=== PATIENT | male | born 1955 | race African-American/Black ===

== ENCOUNTER 2021-11-20 14:47 | Inpatient (IN) | payer OTHER ==
[2021-11-20 17:02] LABS: BASO % 0.3 % (0-2.0); HEMATOCRIT 38.7 % (35.4-49); LYMPH % 17.7 % (8-40); MCH 29.4 pg (25.7-33.7); MCHC 33.6 g/dl (32.0-35.9); MEAN CELL VOLUME 87.6 fl (80-96); MEAN PLT VOLUME 8.7 fl (7.5-11.1); MONO % 7.3 % (3.8-10.2); NEUT % 73.7 % (42.8-82.8); PLATELET COUNT 249 10^3/uL (134-434); RBC 4.42 M/mm3 (4.00-5.60); RDW 14.6 % (11.9-15.9); WHITE BLOOD COUNT 8.9 K/mm3 (4.0-10.0)
[2021-11-20 17:18] LABS: CALCIUM 9.4 mg/dL (8.5-10.1)
[2021-11-20 17:19] LABS: ALBUMIN 3.5 g/dl (3.4-5.0); BLOOD UREA NITROGEN 14.2 mg/dL (7-18); MAGNESIUM 2.5 mg/dL (1.8-2.4)
[2021-11-20 17:22] LABS: CREATININE 1.5 mg/dL (0.55-1.3)
[2021-11-20 17:23] LABS: BILIRUBIN,TOTAL 0.3 mg/dL (0.2-1); TOT PROT 7.8 g/dl (6.4-8.2)
[2021-11-20 17:25] LABS: PHOSPHOROUS 2.3 mg/dL (2.5-4.9)
[2021-11-20 17:56] LABS: LACTIC ACID 3.1 mmol/L (0.4-2.0)
[2021-11-20] MEDS: SODIUM CHLORIDE 1,000 ML IV SCH (21:30)
[2021-11-20] MEDS: HEPARIN NA (PORCINE) 5,000 UNITS/ML 1ML VIAL SQ SCH (22:45)
[2021-11-21] MEDS ORDERED: HEPARIN NA (PORCINE) 5,000 UNITS/ML 1ML VIAL ONE (01:05)
[2021-11-21 03:05] VITALS: BMI 28.3
[2021-11-21] MEDS: SODIUM CHLORIDE 1,000 ML IV SCH ×3 (03:13→21:52)
[2021-11-21] MEDS: HEPARIN NA (PORCINE) 5,000 UNITS/ML 1ML VIAL SQ SCH ×4 (06:39→21:57)
[2021-11-21] MEDS ORDERED: ALBUTEROL SO4 HFA INHALER IH PRN (09:26)
[2021-11-21] MEDS ORDERED: SERTRALINE HCL 50 MG TABLET (FP) PO SCH (10:00)
[2021-11-21] MEDS ORDERED: MULTIVITAMINS (DAILY MVI) TABLET (FP) PO SCH (10:00)
[2021-11-21] MEDS ORDERED: OLANZapine 7.5 MG TABLET PO SCH (10:00)
[2021-11-21] MEDS ORDERED: DONEPEZIL HCL 10 MG TABLET (FP) PO SCH ×2 (10:30→11:40)
[2021-11-21] MEDS ORDERED: OLANZAPINE 5 MG, OLANZAPINE 2.5 MG PO SCH (12:00)
[2021-11-22] MEDS ORDERED: SODIUM CHLORIDE 1,000 ML IV SCH (00:40)
[2021-11-22] MEDS ORDERED: ALBUTEROL SO4 HFA INHALER IH PRN (00:40)
[2021-11-22] MEDS: HEPARIN NA (PORCINE) 5,000 UNITS/ML 1ML VIAL SQ SCH ×2 (06:48→13:55)
[2021-11-22] MEDS ORDERED: OLANZAPINE 5 MG, OLANZAPINE 2.5 MG PO SCH (10:00)
[2021-11-22] MEDS ORDERED: SERTRALINE HCL 50 MG TABLET (FP) PO SCH (10:00)
[2021-11-22] MEDS ORDERED: MULTIVITAMINS (DAILY MVI) TABLET (FP) PO SCH (10:00)
[2021-11-22] MEDS ORDERED: OLANZapine 5 MG TABLET ONE (10:24)
[2021-11-22] MEDS ORDERED: OLANZapine 2.5 MG TABLET ONE (10:24)
[2021-11-22 14:46] VITALS: BP 99/55; PULSE 85; TEMP 98
[2021-11-22] MEDS ORDERED: DONEPEZIL HCL 10 MG TABLET (FP) PO SCH (18:00)
== END 2021-11-22 15:51 | DRG 312 ==
LOC: JER 14:47 → JERBED 18:54 → J4W 11-21 02:27 → J5S 11-22 00:41
PROVIDERS: ADMIT Hospitalist; ATTEND Nurse Practitioner Acute Care
DX: R55 Syncope and collapse (principal); N17.9 Acute kidney failure, unspecified; G30.9 Alzheimer's disease, unspecified; F32.A Depression, unspecified; F02.80 Dementia in other diseases classified elsewhere, unspecified severity, without behavioral disturbance, psychotic disturbance, mood disturbance, and anxiety; F20.9 Schizophrenia, unspecified; W18.30XA Fall on same level, unspecified, initial encounter; Y92.098 Other place in other non-institutional residence as the place of occurrence of the external cause
CPT/HCPCS: 36415; 70450-TC; 71045-TC-FY; 80053; 80307; 82550; 82962; 83605; 83735; 84100; 84484; 85025; 85730; 93005; 93010; 93306-TC; 93880-TC; 99285-25; C9803-CS; J1644; U0003; U0005

== ENCOUNTER 2023-01-02 11:17 | Day surgery (SDC) | payer OTHER ==
[2023-01-01 13:24] VITALS: BMI 29.2
[2023-01-02 14:03] VITALS: RESP 18
[2023-01-02 14:05] VITALS: BP 90/66; PULSE 74; TEMP 97.4
== END 2023-01-02 13:55 | disposition home or self-care (01) ==
LOC: FASU-ENDO 11:17
PROVIDERS: ATTEND Internal Medicine Gastroenterology
PROC: 0DB68ZX Excision of Stomach, Via Natural or Artificial Opening Endoscopic, Diagnostic (ICD-10-PCS; 2023-01-02)
PROC: 0DB48ZX Excision of Esophagogastric Junction, Via Natural or Artificial Opening Endoscopic, Diagnostic (ICD-10-PCS; 2023-01-02)
PROC: 0DB98ZX Excision of Duodenum, Via Natural or Artificial Opening Endoscopic, Diagnostic (ICD-10-PCS; principal; 2023-01-02 12:54)
DX: D64.9 Anemia, unspecified (principal); K29.50 Unspecified chronic gastritis without bleeding; K21.00 Gastro-esophageal reflux disease with esophagitis, without bleeding; B96.81 Helicobacter pylori [H. pylori] as the cause of diseases classified elsewhere; K44.9 Diaphragmatic hernia without obstruction or gangrene
CPT/HCPCS: 88305-TC; 88341-TC; 88342-TC

== ENCOUNTER 2023-01-27 09:42 | Day surgery (SDC) | payer OTHER ==
[2023-01-26 09:48] VITALS: BMI 28.6
[2023-01-27 15:16] VITALS: TEMP 97
[2023-01-27 15:19] VITALS: BP 127/49; PULSE 63; RESP 16
== END 2023-01-27 12:30 | disposition home or self-care (01) ==
LOC: FASU-ENDO 09:42
PROVIDERS: ATTEND Internal Medicine Gastroenterology
PROC: 0DBP8ZX Excision of Rectum, Via Natural or Artificial Opening Endoscopic, Diagnostic (ICD-10-PCS; principal; 2023-01-27 11:21)
DX: D50.9 Iron deficiency anemia, unspecified (principal); K62.1 Rectal polyp; K64.1 Second degree hemorrhoids
CPT/HCPCS: 88305-TC

== ENCOUNTER 2023-03-31 08:07 | Inpatient (IN) | payer OTHER ==
[2023-03-31] MEDS ORDERED: HALOPERIDOL LACTATE 5 MG/ML IM ONE ×4 (09:38→10:43)
[2023-03-31 13:19] LABS: BASO % 0.4 % (0-2.0); HEMATOCRIT 18.5 % (35.4-49); LYMPH % 25.7 % (8-40); MCH 22.9 pg (25.7-33.7); MEAN PLT VOLUME 7.4 fl (7.5-11.1); MONO % 7.4 % (3.8-10.2); NEUT % 65.5 % (42.8-82.8); PLATELET COUNT 446 10^3/uL (134-434); RDW 18.9 % (11.9-15.9); WHITE BLOOD COUNT 9.6 K/mm3 (4.0-10.0)
[2023-03-31 13:20] LABS: HEMOGLOBIN 5.7 GM/dL (11.7-16.9)
[2023-03-31 13:26] LABS: INR 1.03 (0.83-1.09)
[2023-03-31 13:28] LABS: ACTIVATED PTT 26.6 SECONDS (25.2-36.5)
[2023-03-31] MEDS ORDERED: PANTOPRAZOLE SODIUM 40 MG VIAL IVPUSH ONE (13:53)
[2023-03-31] MEDS ORDERED: PANTOPRAZOLE SODIUM 40 MG VIAL ONE (14:17)
[2023-03-31 14:56] LABS: POTASSIUM 4.5 mmol/L (3.5-5.1)
[2023-03-31 14:58] LABS: ALBUMIN 2.8 g/dl (3.4-5.0); BLOOD UREA NITROGEN 13.9 mg/dL (7-18); CALCIUM 8.5 mg/dL (8.5-10.1)
[2023-03-31 15:01] LABS: CREATININE 1.4 mg/dL (0.55-1.3)
[2023-03-31 15:03] LABS: BILIRUBIN,TOTAL 0.2 mg/dL (0.2-1); TOT PROT 6.9 g/dl (6.4-8.2)
[2023-03-31] MEDS: DEXTROSE 5%-LACTATED RINGERS 1,000 ML IV SCH (18:29)
[2023-03-31] MEDS ORDERED: PANTOPRAZOLE SODIUM 40 MG VIAL IVPUSH SCH (22:00)
[2023-04-01] MEDS: PANTOPRAZOLE SODIUM 40 MG VIAL IVPUSH SCH ×3 (00:37→21:39)
[2023-04-01] MEDS: DEXTROSE 5%-LACTATED RINGERS 1,000 ML IV SCH ×4 (00:42→19:54)
[2023-04-01 02:58] VITALS: BMI 26.9
[2023-04-01 14:06] LABS: BASO % 0.3 % (0-2.0); EOS % 2.2 % (0-4.5); HEMATOCRIT 25.2 % (35.4-49); LYMPH % 26.4 % (8-40); MCH 25.2 pg (25.7-33.7); MCHC 31.7 g/dl (32.0-35.9); MEAN CELL VOLUME 79.7 fl (80-96); MEAN PLT VOLUME 7.2 fl (7.5-11.1); MONO % 7.2 % (3.8-10.2); NEUT % 63.9 % (42.8-82.8); PLATELET COUNT 376 10^3/uL (134-434); RBC 3.17 M/mm3 (4.00-5.60); RDW 19.6 % (11.9-15.9); WHITE BLOOD COUNT 7.2 K/mm3 (4.0-10.0)
[2023-04-01 14:14] LABS: INR 1.09 (0.83-1.09); PROTHROMBIN TIME (PATIENT) 12.6 SEC (9.7-13.0)
[2023-04-01 14:28] LABS: BLOOD UREA NITROGEN 11.1 mg/dL (7-18); CALCIUM 8.1 mg/dL (8.5-10.1)
[2023-04-01 14:29] LABS: ALBUMIN 2.5 g/dl (3.4-5.0)
[2023-04-01 14:32] LABS: CREATININE 1.4 mg/dL (0.55-1.3)
[2023-04-01 14:33] LABS: BILIRUBIN,TOTAL 0.4 mg/dL (0.2-1); TOT PROT 6.4 g/dl (6.4-8.2)
[2023-04-01] MEDS ORDERED: LORazepam 2 MG/ML SDV VIAL IVPB PRN (17:48)
[2023-04-01] MEDS: OLANZapine 2.5 MG TABLET PO SCH (21:39)
[2023-04-01] MEDS ORDERED: DONEPEZIL HCL 10 MG TABLET (FP) PO SCH (22:00)
[2023-04-02] MEDS: PANTOPRAZOLE SODIUM 40 MG VIAL IVPUSH SCH ×2 (10:15→21:03)
[2023-04-02] MEDS: DEXTROSE 5%-LACTATED RINGERS 1,000 ML IV SCH (10:20)
[2023-04-02 10:43] LABS: BASO % 0.5 % (0-2.0); EOS % 2.3 % (0-4.5); HEMOGLOBIN 7.3 GM/dL (11.7-16.9); LYMPH % 26.8 % (8-40); MCH 25.4 pg (25.7-33.7); MCHC 31.6 g/dl (32.0-35.9); MEAN CELL VOLUME 80.3 fl (80-96); MEAN PLT VOLUME 7.4 fl (7.5-11.1); MONO % 8.5 % (3.8-10.2); NEUT % 61.9 % (42.8-82.8); PLATELET COUNT 329 10^3/uL (134-434); RBC 2.86 M/mm3 (4.00-5.60); RDW 19.8 % (11.9-15.9); WHITE BLOOD COUNT 7.7 K/mm3 (4.0-10.0)
[2023-04-02 11:42] LABS: ALBUMIN 2.3 g/dl (3.4-5.0); BLOOD UREA NITROGEN 8.9 mg/dL (7-18); MAGNESIUM 2.5 mg/dL (1.8-2.4)
[2023-04-02 11:45] LABS: CREATININE 1.3 mg/dL (0.55-1.3)
[2023-04-02 11:48] LABS: BILIRUBIN,TOTAL 0.4 mg/dL (0.2-1); TOT PROT 5.8 g/dl (6.4-8.2)
[2023-04-02] MEDS: SERTRALINE HCL 50 MG TABLET (FP) PO SCH (21:02)
[2023-04-02] MEDS: OLANZapine 2.5 MG TABLET PO SCH (21:02)
[2023-04-03] MEDS: DEXTROSE 5%-LACTATED RINGERS 1,000 ML IV SCH ×2 (01:38→13:48)
[2023-04-03 12:44] LABS: BASO % 0.3 % (0-2.0); EOS % 1.7 % (0-4.5); HEMATOCRIT 26.2 % (35.4-49); HEMOGLOBIN 8.7 GM/dL (11.7-16.9); LYMPH % 22.6 % (8-40); MCH 26.2 pg (25.7-33.7); MEAN CELL VOLUME 79.4 fl (80-96); MEAN PLT VOLUME 7.3 fl (7.5-11.1); MONO % 7.6 % (3.8-10.2); NEUT % 67.8 % (42.8-82.8); PLATELET COUNT 320 10^3/uL (134-434); RDW 20.2 % (11.9-15.9); WHITE BLOOD COUNT 7.1 K/mm3 (4.0-10.0)
[2023-04-03 12:48] LABS: INR 1.09 (0.83-1.09); PROTHROMBIN TIME (PATIENT) 12.6 SEC (9.7-13.0)
[2023-04-03 13:09] LABS: POTASSIUM 4.1 mmol/L (3.5-5.1)
[2023-04-03 13:14] LABS: CALCIUM 7.8 mg/dL (8.5-10.1)
[2023-04-03 13:15] LABS: ALBUMIN 2.4 g/dl (3.4-5.0); MAGNESIUM 2.1 mg/dL (1.8-2.4)
[2023-04-03 13:19] LABS: BILIRUBIN,TOTAL 0.5 mg/dL (0.2-1); CREATININE 1.2 mg/dL (0.55-1.3)
[2023-04-03] MEDS: PANTOPRAZOLE SODIUM 40 MG VIAL IVPUSH SCH (13:47)
[2023-04-03] MEDS: OLANZapine 2.5 MG TABLET PO SCH (21:01)
[2023-04-03] MEDS: PANTOPRAZOLE 40 MG TABLET PO SCH (21:01)
[2023-04-03] MEDS: SERTRALINE HCL 50 MG TABLET (FP) PO SCH (21:03)
[2023-04-04 09:58] LABS: BASO % 0.5 % (0-2.0); EOS % 2.6 % (0-4.5); HEMATOCRIT 26.6 % (35.4-49); HEMOGLOBIN 8.9 GM/dL (11.7-16.9); LYMPH % 27.5 % (8-40); MCH 26.2 pg (25.7-33.7); MCHC 33.5 g/dl (32.0-35.9); MEAN CELL VOLUME 78.3 fl (80-96); MEAN PLT VOLUME 7.4 fl (7.5-11.1); MONO % 11.2 % (3.8-10.2); NEUT % 58.2 % (42.8-82.8); PLATELET COUNT 299 10^3/uL (134-434); RDW 20.6 % (11.9-15.9); WHITE BLOOD COUNT 7.2 K/mm3 (4.0-10.0)
[2023-04-04 10:19] LABS: POTASSIUM 4.1 mmol/L (3.5-5.1)
[2023-04-04 10:23] LABS: CALCIUM 8.3 mg/dL (8.5-10.1)
[2023-04-04 10:24] LABS: ALBUMIN 2.5 g/dl (3.4-5.0); BLOOD UREA NITROGEN 8.7 mg/dL (7-18); MAGNESIUM 2.4 mg/dL (1.8-2.4)
[2023-04-04 10:27] LABS: CREATININE 1.4 mg/dL (0.55-1.3)
[2023-04-04 10:29] LABS: BILIRUBIN,TOTAL 0.4 mg/dL (0.2-1); TOT PROT 6.1 g/dl (6.4-8.2)
[2023-04-04] MEDS: PANTOPRAZOLE 40 MG TABLET PO SCH ×2 (10:51→21:37)
[2023-04-04] MEDS: DEXTROSE 5%-LACTATED RINGERS 1,000 ML IV SCH ×3 (10:53→21:38)
[2023-04-04 12:25] LABS: ANISOCYTOSIS 2+
[2023-04-04] MEDS: SERTRALINE HCL 50 MG TABLET (FP) PO SCH (21:37)
[2023-04-04] MEDS: OLANZapine 2.5 MG TABLET PO SCH (21:37)
[2023-04-05] MEDS: PANTOPRAZOLE 40 MG TABLET PO SCH ×2 (10:11→21:26)
[2023-04-05 10:16] LABS: BASO % 0.7 % (0-2.0); HEMATOCRIT 28.2 % (35.4-49); LYMPH % 32.7 % (8-40); MCH 26.1 pg (25.7-33.7); MCHC 31.8 g/dl (32.0-35.9); MEAN CELL VOLUME 82.1 fl (80-96); MEAN PLT VOLUME 7.7 fl (7.5-11.1); MONO % 10.6 % (3.8-10.2); PLATELET COUNT 301 10^3/uL (134-434); RBC 3.43 M/mm3 (4.00-5.60); RDW 20.3 % (11.9-15.9); WHITE BLOOD COUNT 7.2 K/mm3 (4.0-10.0)
[2023-04-05 10:38] LABS: POTASSIUM 4.6 mmol/L (3.5-5.1)
[2023-04-05 10:44] LABS: ALBUMIN 2.6 g/dl (3.4-5.0); CALCIUM 8.5 mg/dL (8.5-10.1); MAGNESIUM 2.3 mg/dL (1.8-2.4)
[2023-04-05 10:47] LABS: CREATININE 1.4 mg/dL (0.55-1.3)
[2023-04-05 10:49] LABS: BILIRUBIN,TOTAL 0.4 mg/dL (0.2-1); TOT PROT 6.4 g/dl (6.4-8.2)
[2023-04-05] MEDS: OLANZapine 2.5 MG TABLET PO SCH (21:26)
[2023-04-05] MEDS: SERTRALINE HCL 50 MG TABLET (FP) PO SCH (21:26)
[2023-04-06] MEDS: PANTOPRAZOLE 40 MG TABLET PO SCH ×2 (09:44→22:44)
[2023-04-06] MEDS: OLANZapine 2.5 MG TABLET PO SCH (21:18)
[2023-04-06] MEDS: SERTRALINE HCL 50 MG TABLET (FP) PO SCH (21:18)
[2023-04-06 21:27] VITALS: BP 92/63; PULSE 85; RESP 20; TEMP 98.6
== END 2023-04-07 02:30 | DRG 369 ==
LOC: JER 08:07 → JERBED 15:18 → J8W 20:52
PROVIDERS: ADMIT Internal Medicine; ATTEND Nurse Practitioner Family
PROC: 30233N1 Transfusion of Nonautologous Red Blood Cells into Peripheral Vein, Percutaneous Approach (ICD-10-PCS; 2023-03-31)
PROC: 0DB58ZX Excision of Esophagus, Via Natural or Artificial Opening Endoscopic, Diagnostic (ICD-10-PCS; principal; 2023-04-03 10:00)
DX: K20.91 Esophagitis, unspecified with bleeding (principal); D62 Acute posthemorrhagic anemia; K92.0 Hematemesis; G30.9 Alzheimer's disease, unspecified; F02.80 Dementia in other diseases classified elsewhere, unspecified severity, without behavioral disturbance, psychotic disturbance, mood disturbance, and anxiety; K21.9 Gastro-esophageal reflux disease without esophagitis; K44.9 Diaphragmatic hernia without obstruction or gangrene; F32.A Depression, unspecified; F20.9 Schizophrenia, unspecified
CPT/HCPCS: 36415; 36430; 80048; 80053; 83735; 85025; 85610; 85730; 86850; 86900; 86901; 86922; 87635; 88305-TC; 93005; 93010; 97116-GP; 97162-GP; 99285-25; P9058